=== PATIENT | male | born 1955 | race Caucasian/White ===

== ENCOUNTER 2021-09-16 10:12 | Outpatient (REF) | payer MEDICARE, MEDICAID, SELFPAY ==
--- NOTE | ~2021-09-16 | XR_ITS ---
EXAMINATION: XR CHEST CLINICAL INFORMATION: Hypercalcemia COMPARISON: None TECHNIQUE: 2 views of the chest were obtained. FINDINGS: The cardiac and mediastinal contours are normal. There are symmetric appearing 7 mm nodules of both lung bases. These may represent nipple shadows. The lungs are otherwise clear. There is no pleural effusion or pneumothorax. There are degenerative changes of the spine. XR/XR chest 2V IMPRESSION: Small symmetric nodules at both lung bases, question representing nipple shadows. Follow-up chest x-ray with nipple markers or chest CT recommended.
== END 2021-09-16 10:13 | disposition home or self-care (01) ==
LOC: HO.XRAY 10:12
PROVIDERS: Visit Provider Internal Medicine
DX: E83.52 Hypercalcemia (principal)
CPT/HCPCS: 71046

== ENCOUNTER 2022-11-10 08:33 | Outpatient (REF) | payer MEDICARE, MEDICAID, SELFPAY ==
[2022-11-10 15:31] LABS: Alanine Aminotransferase 33 U/L (0-40); Albumin Level 4.6 g/dL (3.5-5.0); Alkaline Phosphatase 58 U/L (39-117); Anion Gap 15 (12-20); Aspartate Amino Transferase 25 U/L (5-37); Bilirubin Direct 0.1 mg/dL (0.0-0.5); Bilirubin Total 0.4 mg/dL (0.0-1.0); Blood Urea Nitrogen 14 mg/dL (9-16); Calcium 10.4 mg/dL (8.4-10.2); Carbon Dioxide 21 mmol/L (22-29); Chloride 110 mmol/L (96-108); Cholesterol 178 mg/dL; Estimated Glomerular Filt Rate > 60; Glucose Random 101 mg/dL (60-115); HDL Cholesterol 42 mg/dL; LDL Cholesterol Calculated 106 mg/dl; Potassium 4.1 mmol/L (3.3-5.1); Sodium 142 mmol/L (135-145); Total Protein 7.6 g/dL (6.5-8.0); Triglycerides 151 mg/dL
== END 2022-11-10 08:34 | disposition home or self-care (01) ==
LOC: HO.HHCL 08:33
PROVIDERS: Visit Provider Internal Medicine
DX: I10 Essential (primary) hypertension (principal); E78.2 Mixed hyperlipidemia
CPT/HCPCS: 36415; 80048; 80061; 80076

== ENCOUNTER 2023-03-27 08:29 | Outpatient (REF) | payer MEDICARE, MEDICAID, SELFPAY ==
[2023-03-27 11:49] LABS: Anion Gap 13 (12-20); Blood Urea Nitrogen 16 mg/dL (9-16); Calcium 10.8 mg/dL (8.4-10.2); Carbon Dioxide 25 mmol/L (22-29); Chloride 108 mmol/L (96-108); Estimated Glomerular Filt Rate 59; Glucose Random 104 mg/dL (60-115); Potassium 4.3 mmol/L (3.3-5.1); Sodium 142 mmol/L (135-145)
== END 2023-03-27 08:30 | disposition home or self-care (01) ==
LOC: HO.HHCL 08:29
PROVIDERS: Visit Provider Internal Medicine
DX: R73.03 Prediabetes (principal)
CPT/HCPCS: 36415; 80048

== ENCOUNTER 2023-10-12 08:59 | Outpatient (REF) | payer MEDICARE, MEDICAID, SELFPAY ==
[2023-10-12 11:14] LABS: MANUAL DIFF FLAG NO
[2023-10-12 11:30] LABS: Basophils Percent Auto 0.7 % (0-2); Eosinophils Absolute Auto 0.1 X10*3/uL (0.0-0.4); Eosinophils Percent Auto 1.1 % (0-4); Hematocrit 42.4 % (42.0-52.0); Hemoglobin 14.4 g/dl (14.0-18.0); Imm Gran Abs Auto 0.02 X10*3/uL (0.00-0.03); Imm Gran Pct Auto 0.4 % (0.0-0.4); Lymphocytes Absolute Auto 1.6 X10*3/uL (1.2-4.9); Mean Corpuscular Hemoglobin 31.8 pg (27.0-33.0); Mean Corpuscular Volume 93.6 fL (80.0-98.0); Mean Platelet Volume 10.3 fL (9.4-12.4); Monocytes Absolute Auto 0.3 X10*3/uL (0.1-1.2); Monocytes Percent Auto 6.3 % (2-11); Neutrophils Absolute Auto 3.3 x10*3/uL (2.0-8.3); Neutrophils Percent Auto 61.5 % (45-73); Platelet Count 226 X10*3/uL (160-400); Red Blood Count 4.53 X10*6/uL (4.60-5.80); Red Cell Distribution Width 12.4 % (11.0-16.0); White Blood Count 5.4 X10*3/uL (4.8-10.8)
[2023-10-12 11:40] LABS: Alanine Aminotransferase 32 U/L (0-40); Albumin Level 4.5 g/dL (3.5-5.0); Alkaline Phosphatase 65 U/L (39-117); Anion Gap 11 (12-20); Aspartate Amino Transferase 26 U/L (5-37); Bilirubin Total 0.5 mg/dL (0.0-1.0); Blood Urea Nitrogen 12 mg/dL (9-16); Calcium 10.3 mg/dL (8.4-10.2); Carbon Dioxide 28 mmol/L (22-29); Chloride 108 mmol/L (96-108); Cholesterol 139 mg/dL (<200); Estimated Glomerular Filt Rate 59; Glucose Random 97 mg/dL (60-115); HDL Cholesterol 40 mg/dL (>40); LDL Cholesterol Calculated 79 mg/dL (<100); Potassium 4.2 mmol/L (3.3-5.1); Sodium 143 mmol/L (135-145); Total Protein 7.4 g/dL (6.5-8.0); Triglycerides 103 mg/dL (<150)
[2023-10-12 11:51] LABS: Prostate Specific Antigen Scr 1.22 ng/mL (<0.05-4.0)
[2023-10-12 11:57] LABS: TSH reflex Free T4 0.71 uIU/mL (0.32-4.0); Vitamin D 25-OH Total 44.9 ng/mL (>30)
[2023-10-12 11:59] LABS: Parathyroid Hormone Intact 59.8 pg/mL (8.7-77.1)
== END 2023-10-12 09:00 | disposition home or self-care (01) ==
LOC: HO.HHCL 08:59
PROVIDERS: Visit Provider Internal Medicine
DX: Z00.00 Encounter for general adult medical examination without abnormal findings (principal); E83.52 Hypercalcemia; I10 Essential (primary) hypertension; E78.2 Mixed hyperlipidemia; Z12.5 Encounter for screening for malignant neoplasm of prostate
CPT/HCPCS: 36415; 80053; 80061; 82306; 83970; 84153; 84443; 85025

== ENCOUNTER 2024-08-25 09:14 | Outpatient (AMB) | payer MEDICARE, SELFPAY ==
--- NOTE | 2024-08-25 09:18 | A.OFFVIS_ITS ---
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 Intake Note: New patient abnormal ekg they tried to do stress in the past but feel off the treadmill c/o maybe palpitations at times Shipping Room Helper Required: Yes Shipping Room Helper Services: Shipping Room Helper Present Shipping Room Helper Name: darnell Obando Allergies No Known Allergies Allergy (Verified 08/25/24 09:24) Medication List - Last Reconciled 08/25/24 by Jigar Bruce MD atorvastatin 20 mg PO DAILY lisinopril 20 mg PO DAILY omeprazole 20 mg PO DAILY verapamil ER 240 mg PO DAILY HPI Comments Details: Thank you for referring Ed in cardiology consultation today for abnormal EKG. History was obtained with help of waterproofer helper. He said he had EKG performed few months ago which was reported as abnormal and after that he has been getting symptoms of precordial chest discomfort. Describes his chest discomfort was sharp pressure usually after finishes exercising when he starts relaxing. Symptoms then dissipate within a minute or 2. The symptoms have been bothering. He was referred for a stress test although he said when he walked on treadmill was very fast he fell of the treadmill and he could not complete the test. Since then he does not want to do a repeat stress test as he said it is difficult for him to walk on a treadmill at that fast pace. He denies any significant shortness of breath with exertion. No orthopnea, PND, leg edema. He has longstanding history of hypertension hyperlipidemia. Also strong family history for premature coronary artery disease in his 2 brothers who have had open heart surgery as per him. He denies any prolonged palpitation irregular heartbeat. No lightheadedness, syncope. [facility] Medical History (Updated 08/25/24 @ 09:58 by Jigar Bruce MD) Hyperlipidemia HTN (hypertension) Surgical History Hx of appendectomy Family History Father No problems noted. Mother No problems noted. Social History Patient Tobacco Use Status: Former Tobacco user Review of Systems Const Denies chills, Denies daytime sleepiness, Denies fatigue, Denies fever(s), Denies frequent falls, Denies poor appetite, Denies snoring, Denies stops breathing during sleep, Denies weakness, Denies weight gain and Denies weight loss Eyes Denies loss of vision ENT Denies dizziness and Denies hearing loss Card Denies chest pain, Denies claudication, Denies leg edema, Denies lightheadedness, Denies palpitations, Denies dyspnea, Denies dyspnea on exertion and Denies orthopnea Resp Denies cough, Denies excessive phlegm production, Denies dyspnea, Denies dyspnea on exertion, Denies snoring and Denies wheezing GI Denies abdominal pain, Denies hematochezia, Denies change in bowel habits, Denies nausea and Denies vomiting Denies dysuria and Denies urinary frequency Musc Denies arthralgias, Denies muscle weakness, Denies numbness and Denies other (frequent falls) Skin/Breast Denies nail changes and Denies rash Neuro Denies Abnormal speech present, Denies dizziness, Denies frequent falls, Denies loss of vision, Denies memory loss, Denies numbness and Denies weakness Psych Denies depression and Denies memory loss Endo Denies fatigue and Denies palpitations Kevin/Lymph Reports easy bruising and Reports other (anemia) Aller/Immun Denies wheezing Physical Exam Vital Signs: Last Vital Signs Pulse 76 08/25/24 09:19 BP 124/70 08/25/24 09:19 BMI result Body Mass Index 31.0 Const General: cooperative, comfortable, no acute distress, alert and awake Nutritional Appearance: overweight Orientation/consciousness: patient oriented x3 Limitations: no limitations HEENT Head: Yes normocephalic and Yes atraumatic Neck Neck: Yes trachea midline, Yes supple and Yes no JVD Chest Chest palpation & inspection: normal inspection of the chest Resp Effort & Inspection: normal respiratory effort Auscultation: clear to auscultation bilaterally Cardio Jugular venous distension: no JVD Palpation: normal PMI Rate: regular rate Rhythm: regular rhythm Heart sounds: S1 normal heart sound present, S2 normal heart sound present, no click, no gallops, no murmurs and no rubs Bruits: no carotid bruits GI Auscultation: normal bowel sounds Skin General skin exam: no rashes or lesions noted Neuro General: patient oriented x3 and no focal motor deficits Speech: No Abnormal speech present Extrem General: Yes no clubbing, cyanosis or edema Psych Appearance: grossly normal Office Procedures EKG Details: EKG shows normal sinus rhythm normal EKG 23499-[id number], Complete Assessment & Plan Assessment & Plan (1) Atypical chest pain: Code(s): R07.89 - Other chest pain Category: Medical Plan: Atypical precordial chest pain this elderly gentleman with multiple risk factors including family history, hypertension, hyperlipidemia as well as his age. Likelihood of myocardial ischemia is intermediate. He can not exercise on treadmill. His baseline EKGs although he is normal. I have suggested him to undergo vasodilating myocardial perfusion imaging due to his inability to exercise on treadmill. This will be scheduled in near future. Further treatment based on the findings. If this is within normal limits can consider coronary calcium score for further risk stratification purposes. Also suggest an echocardiogram to evaluate for LV systolic and diastolic function to evaluate for hypertensive heart disease. These tests will be scheduled in near future. Further testing based on the finding of these test results. For now continue aggressive blood pressure control which is currently well optimized. At least target goal LDL less than 100 mg/dL and may need to intensify based on the findings of the coronary calcium score. Will follow up in the clinic in 2 months time, sooner p.r.n.. Thank you for allowing me to partake in his care Coding Level of Care Code New Pt Level 4 (06150) Complex EM visit Add On G2211 Diagnoses Atypical chest pain R07.89 CPT Codes EKG - CPT: 93130-[id number], Complete ([id number])
[2024-08-25 09:19] VITALS: BP 124/70; PULSE 76; BMI 31.0
--- OUTSIDE RECORDS SUMMARY | 2024-08-25 09:25 | XMS_ITS | Clinical Summary ---
Author Organization [employer] Address [address] [place] [address] Care Team Providers Care Wan Support Specialist Name Role Phone Jameson Mccurdy MD Primary Care Provide r Allergies No known active allergies Medications polycarbophil (FiberCon) 625 MG tabletIndications:C onstipation, unspecified constipation type Take 1 tablet (625 mg) by mouth Once per day. 30 tablet 11 4 09/07/19 25 Active hydrocortisone (Anusol-HC) 2.5 % rectal creamIndications:He morrhoids, unspecified hemorrhoid type Insert into the rectum 2 times daily. 28 g 1 4 Active verapamil SR (Calan SR) 240 MG ER tabletIndications:E ssential hypertension TAKE 1 TABLET BY MOUTH EVERY DAY WITH FOOD 90 tablet 1 4 Active atorvastatin (Lipitor) 20 MG tabletIndications:M ixed hyperlipidemia TAKE 1 TABLET BY MOUTH ONCE DAILY (STOP FENOFIBRATE) 90 tablet 4 Active omeprazole (PriLOSEC) [address] capsuleIndications: Gastroesophageal reflux disease without esophagitis TAKE 1 CAPSULE BY MOUTH ONCE DAILY BEFORE A MEAL 90 capsule 1 5 Active lisinopril 20 MG tabletIndications:E ssential hypertension Take 1 tablet by mouth once daily 90 tablet 5 Active Active Problems Problem Noted Date Diagnosed Date Abnormal EKG 10/09/2023 Assessment & Plan (05/01/2024 2:03 PM EST): 68 year old male with Pmhx for HTN, Hyperlipidemia. With an ASCVD risk score down to 13.2% Most recent EKG showed Qs in III, as well as flat T waves III, AVF. Patient was referred to cardiology evaluation to rule out silent ischemia. Given risk factors needs Outpatient stress test. Patient cancelled appointment because he reports he had a bad experience years ago, he apparently fell when he was running in the treadmill. The 10-year ASCVD risk score (Sally HANNON, et al., 2019) is: 13.2% Values used to calculate the score: Age: 68 years Sex: Male Is Non- : No Diabetic: No Tobacco smoker: No Systolic Blood Pressure: 117 mmHg Is BP treated: Yes HDL Cholesterol: 40 mg/dL Total Cholesterol: 139 mg/dL Assessment & Plan (01/08/2024 2:48 PM EDT): 68 year old male with Pmhx for HTN, Hyperlipidemia. With an ASCVD risk score down to 13.2% Most recent EKG showed Qs in III, as well as flat T waves III, AVF. Patient was referred to cardiology evaluation to rule out silent ischemia. Given risk factors needs Outpatient stress test. Patient cancelled appointment because he reports he had a bad experience years ago, he apparently fell when he was running in the treadmill. The 10-year ASCVD risk score (Sally HANNON, et al., 2019) is: 13.2% Values used to calculate the score: Age: 68 years Sex: Male Is Non- : No Diabetic: No Tobacco smoker: No Systolic Blood Pressure: 117 mmHg Is BP treated: Yes HDL Cholesterol: 40 mg/dL Total Cholesterol: 139 mg/dL Assessment & Plan (10/09/2023 1:16 PM EDT): 68 year old male with Pmhx for HTN, Hyperlipidemia. With an ASCVD risk score of 17.1% EKG today shows Qs in III, as well as flat T waves III, AVF. Plan: cardiology evaluation to rule out silent ischemia. Given risk factors needs Outpatient stress test The 10-year ASCVD risk score (Sally HANNON, et al., 2019) is: 17.1% Values used to calculate the score: Age: 68 years Sex: Male Is Non- : No Diabetic: No Tobacco smoker: No Systolic Blood Pressure: 127 mmHg Is BP treated: Yes HDL Cholesterol: 42 mg/dL Total Cholesterol: 178 mg/dL Constipation 09/07/2023 Assessment & Plan (09/07/2023 11:25 AM EDT): I advise to stop the supplement that cause the constipation, more fiber and water on his diet I will prescribed colace and fiber Hemorrhoid 09/07/2023 Assessment & Plan (09/07/2023 11:25 AM EDT): Hydrocortisone prescribed if problem persist or worse contact us back Overweight (BMI 25.0-29.9) 03/20/2023 Assessment & Plan (05/01/2024 2:32 PM EST): Patient has been counseled and educated about diet and exercise. Personal goal of weight loss discussedPatient has comorbidity of: HTN Assessment & Plan (03/20/2023 10:39 AM EST): Patient has been counseled and educated about diet and exercise. Personal goal of weight loss discussedPatient has comorbidity of: HTN Class 1 obesity due to exces s calories with serious comorbidity and body mass index (BMI) of 30.0 to 30.9 in adult 07/04/2022 Assessment & Plan (07/04/2022 2:25 PM EDT): Patient has been counseled and educated about diet and exercise. Personal goal of weight loss discussedPatient has comorbidity of: HTN Exercise counseling 07/04/2022 Dietary counseling 03/14/2022 Assessment & Plan (03/14/2022 1:59 PM EST): Abdominal US ordered Hypercalcemia 03/10/2022 Assessment & Plan (01/08/2024 2:37 PM EDT): Initial work up to r/o causes of Hypercalcemia such as Hyperparathyroidism among other things was unremarkable PTH, PTHrP, TSH, SPEP , UPEP were all wnl. 1 25 dihydroxyvitamin D, 25 hydroxy vitamin D were low I discontinued his Thiazide diuretic in the event that this could be contributing to it Pt was seen by Endocrinology 06/09/2021 and subsequently on 10/27/2021 They recommended to repeat PTH, Vit D and a 24 urine Ca and Cr. Initially they mentioned that pending results if non-PTH related hypercalcemia to do a work up for hematological disorders or to work up for Sarcoidosis or granulomatous diseases, but it appears that upon repeat his Calcium had normalized and they then recommended to discharge pt back to Primary care Repeat Calcium 10/12/2023: 10.3 Assessment & Plan (10/09/2023 12:41 PM EDT): Patient with persistent Hypercalcemia Initial work up to r/o causes of Hypercalcemia such as Hyperparathyroidism among other things has been unremarkable PTH, PTHrP, TSH, SPEP , UPEP were all wnl. 1 25 dihydroxyvitamin D, 25 hydroxy vitamin D were low I discontinued his Thiazide diuretic in the event that this could be contributing to it Pt was seen by Endocrinology 06/09/2021 and subsequently on 10/27/2021 They recommended to repeat PTH, Vit D and a 24 urine Ca and Cr. Initially they mentioned that pending results if non-PTH related hypercalcemia to do a work up for hematological disorders or to work up for Sarcoidosis or granulomatous diseases, but it appears that upon repeat his Calcium had normalized and they then recommended to discharge pt back to Primary care Repeat Calcium 03/2023 went back up to 10.8. will repeat today Assessment & Plan (07/04/2022 2:17 PM EDT): Initial work up to r/o causes of Hypercalcemia such as Hyperparathyroidism among other things has been unremarkable PTH, PTHrP, TSH, SPEP , UPEP were all wnl 1 25 dihydroxyvitamin D, 25 hydroxy vitamin D were low Previous visit I discontinued his Thiazide diuretic in the event that this could be contributing to it Pt was referred to Endocrinology, he was seen 06/09/2021 and subsequently on 10/27/2021 They recommended to repeat PTH, Vit D and a 24 urine Ca and Cr. Initially they mentioned that pending results if non-PTH related hypercalcemia to do a work up for hematological disorders or to work up for Sarcoidosis or granulomatous diseases, but it appears that upon repeat his Calcium had normalized and they then recommended to discharge pt back to Primary care Repeat Calcium 03/2022 was back to normal no further work up Assessment & Plan (03/14/2022 11:43 AM EST): Here for a f/u Previous repeat level was still elevated, Initial work up to r/o causes of Hypercalcemia such as Hyperparathyroidism among other things has been unremarkable PTH, PTHrP, TSH, SPEP , UPEP were all wnl 1 25 dihydroxyvitamin D, 25 hydroxy vitamin D were low Previous visit I discontinued his Thiazide diuretic in the event that this could be contributing to it Pt was referred to Endocrinology, he was seen 06/09/2021 and subsequently on 10/27/2021 They recommended to repeat PTH, Vit D and a 24 urine Ca and Cr. Initially they mentioned that pending results if non-PTH related hypercalcemia to do a work up for hematological disorders or to work up for Sarcoidosis or granulomatous diseases, but it appears that upon repeat his Calcium had normalized and they then recommended to discharge pt back to Primary care Plan: Repeat Ionized Calcium today 3 months f/u Polyp of transverse colon 03/10/2022 Assessment & Plan (07/04/2022 2:15 PM EDT): Patient has a History of an extremely large sessile polyp of the transverse colon piecemeal resected. he had his last colonoscopy 09/12/[address] Marinelli. On his note Dr. Marinelli wrote he wanted to repeat his Colonoscopy in 3 years to assure full polyp removal and rule out any recurrent polyps. Unfortunately since then Dr. Marinelli has retired and pt never had it repeated. Previously Pt was referred to [facility] for a repeat appointment scheduled for 06/2019, unfortunately this was cancelled due to Covid, He was finally seen 08/31/2021 and had a colonoscopy [place] 16 2022 [place] [facility] [place] showed 3 polyps 5 year follow up recommended Assessment & Plan (03/10/2022 5:17 PM EST): Patient has a History of an extremely large sessile polyp of the transverse colon piecemeal resected. he had his last colonoscopy 09/12/[address] Marinelli. On his note Dr. Marinelli wrote he wanted to repeat his Colonoscopy in 3 years to assure full polyp removal and rule out any recurrent polyps. Unfortunately since then Dr. Marinelli has retired and pt never had it repeated. Previously Pt was referred to [facility] for a repeat appointment scheduled for 06/2019, unfortunately this was cancelled due to Covid, He was finally seen 08/31/2021 and is already scheduled for procedure for March 16 2022 [facility] care 03/10/2022 Assessment & Plan (01/08/2024 2:39 PM EDT): PSA Normal 1.22 10/12/2023 Colonoscopy: History of an extremely large sessile polyp of the transverse colon piecemeal resected. he had a colonoscopy 09/12/[address] Marinelli.Repeat Colonoscopy 03/2022 showed 3 polyps and hemorrhoids 5 yr follow up recommended to be done at [facility] [place]. Assessment & Plan (10/09/2023 12:42 PM EDT): JERAD: PSA Normal 2020, will repeat Colonoscopy: History of an extremely large sessile polyp of the transverse colon piecemeal resected. he had a colonoscopy 09/12/[address] Marinelli.Repeat Colonoscopy 03/2022 showed 3 polyps and hemorrhoids 5 yr follow up recommended done at [facility] [place] 20[place]. Assessment & Plan (07/04/2022 2:18 PM EDT): JERAD: PSA Normal 2020 Colonoscopy: History of an extremely large sessile polyp of the transverse colon piecemeal resected. he had his last colonoscopy 09/12/[address] Marinelli. Repeat Colonoscopy 03/2022 showed 3 polyps and hemorrhoids 5 yr follow up recommended done at [facility] Assessment & Plan (03/10/2022 5:19 PM EST): JERAD: PSA Normal 2020 Colonoscopy: History of an extremely large sessile polyp of the transverse colon piecemeal resected. he had his last colonoscopy 09/12/[address] Marinelli. On his note Dr. Marinelli wrote he wanted to repeat his Colonoscopy in 3 years to assure full polyp removal and rule out any recurrent polyps. Pt has missed appointments today will try to help him reschedule Vaccines: Uptodate on his Covid-19 vaccine Impaired glucose tolerance 02/23/2022 Assessment & Plan (05/01/2024 2:33 PM EST): FBS 10/12/2023: 97 Will repeat Assessment & Plan (01/08/2024 2:36 PM EDT): Repeat FBS 10/12/2023: 97 Assessment & Plan (10/09/2023 12:36 PM EDT): Repeat FBS 03/2023 104 Assessment & Plan (03/20/2023 10:25 AM EST): Will obtain a FBS Posterior vitreous detachment of right eye 08/19 Essential hypertension 06/10/2018 Assessment & Plan (05/01/2024 2:03 PM EST): Patient is here for a f/u BP remains controlled He is on a regimen of: Verapamil 240 mg po daily and Lisinopril 20 mg. po daily. Given the fact that he had Hypercalcemia and initial work up had been negative for other etiologies I was concerned the Thiazide diuretic was contributing to it Most recent electrolytes, Bun and Creatinine 10/12/2023 were wnl. patient advised to adhere to a low sodium diet, encouraged about medication compliance, counseled about weight loss. Plan: continue current regimen Assessment & Plan (01/08/2024 2:35 PM EDT): Patient is here for a f/u BP remains controlled He is on a regimen of: Verapamil 240 mg po daily and Lisinopril 20 mg. po daily. Given the fact that he had Hypercalcemia and initial work up had been negative for other etiologies I was concerned the Thiazide diuretic was contributing to it Most recent electrolytes, Bun and Creatinine 10/12/2023 were wnl. patient advised to adhere to a low sodium diet, encouraged about medication compliance, counseled about weight loss. Plan: continue current regimen Assessment & Plan (10/09/2023 12:36 PM EDT): Patient is here for a f/u BP remains controlled He is on a regimen of: Verapamil 240 mg po daily and Lisinopril 20 mg. po daily. Given the fact that he had Hypercalcemia and initial work up had been negative for other etiologies I was concerned the Thiazide diuretic was contributing to it Most recent electrolytes, Bun and Creatinine 03/27/2023 were wnl. patient advised to adhere to a low sodium diet, encouraged about medication compliance, counseled about weight loss. Plan: continue current regimen Assessment & Plan (03/20/2023 8:45 AM EST): Patient is here for a f/u BP remains controlled He is on a regimen of: Verapamil 240 mg po daily and Lisinopril 20 mg. po daily. Given the fact that he had Hypercalcemia and initial work up had been negative for other etiologies I was concerned the Thiazide diuretic was contributing to it Most recent electrolytes, Bun and Creatinine 11/10/2022 were wnl. patient advised to adhere to a low sodium diet, encouraged about medication compliance, counseled about weight loss. Plan: continue current regimen Assessment & Plan (11/02/2022 10:03 AM EDT): Patient is here for a f/u BP remains controlled He is on a regimen of: Verapamil 240 mg po daily and Lisinopril 20 mg. po daily. Given the fact that he had Hypercalcemia and initial work up had been negative for other etiologies I was concerned the Thiazide diuretic was contributing to it Most recent electrolytes, Bun and Creatinine 03/27/2022 were wnl. Will repeat patient advised to adhere to a low sodium diet, encouraged about medication compliance, counseled about weight loss. Plan: continue current regimen Assessment & Plan (07/04/2022 2:13 PM EDT): Pt here for a f/u BP remains controlled He is on a regimen of: Verapamil 240 mg po daily and Lisinopril 20 mg. po daily. Given the fact that he has Hypercalcemia and initial work up has been negative for other etiologies I was concerned the Thiazide diuretic was contributing to it Most recent electrolytes, Bun and Creatinine 03/27/2023 were wnl. patient advised to adhere to a low sodium diet, encouraged about medication compliance, counseled about weight loss. Plan: continue current regimen Assessment & Plan (03/10/2022 5:16 PM EST): Pt here for a f/u BP controlled He is on a regimen of: Verapamil 240 mg po daily and Lisinopril 20 mg Given the fact that he has Hypercalcemia and initial work up has been negative for other etiologies I was concerned the Thiazide diuretic was contributing to it Most recent electrolytes, Bun and Creatinine 10/21/2020 were wnl today will repeat patient advised to adhere to a low sodium diet, encouraged about medication compliance, counseled about weight loss. Plan: continue current regimen Gastroesophageal reflux disease 06/10/2018 Hyperlipidemia 06/10/2018 Assessment & Plan (01/08/2024 2:38 PM EDT): Patient with elevated lipids. Most recent lipid profile from: Lab Results Component Value Date TRIG 103 10/12/2023 TRIG 151 11/10/2022 CHOL 139 10/12/2023 CHOL 178 11/10/2022 LDLCHOLCAL 79 10/12/2023 LDLCHOLCAL 106 11/10/2022 HDL 40 (L) 10/12/2023 HDL 42 11/10/2022 Currently on Atorvastatin 20 mg po qhs . advised to try to adhere to a low cholesterol diet, counseled and educated about diet and exercise, Patient encouraged to come up with a personal goal for weight loss. Assessment & Plan (10/09/2023 1:22 PM EDT): Patient with elevated lipids. Most recent lipid profile from: 11/10/2022 shows Component Ref Range & Units 4 mo ago (11/10/22) 11 mo ago (03/27/22) 2 yr ago (10/21/20) 2 yr ago (10/21/20) Triglycerides mg/dL 151 279 High R, CM 155 High R 155 R Comment: Desirable Triglyceride: less than 150 mg/dLBorderline High Triglyceride 150-199 mg/dLHigh Triglyceride: 200-499 mg/dLVery High Triglyceride: greater than or equal to 5OO mg/dL Cholesterol mg/dL 178 181 R Comment: Desirable Cholesterol: less than 200 mg/dLBorderline High Cholesterol: 200-239 mg/dLHigh Cholesterol: greater than 239 mg/dL LDL Cholesterol Calculated mg/dl 106 Comment: Desirable LDL: less than 100 mg/dLNear Optimal/Above Optimal LDL: 110- 129 mg/dLBorderline High LDL: 130-159 mg/dLHigh LDL: 160-189 mg/dLVery High LDL: greater than or equal to 190 mg/dL HDL Cholesterol mg/dL 42 41 R 43 R Currently on Tricor Ascvd 17.1% Plan: STOP Tricor, START Atorvastatin 20 mg po qhs . advised to try to adhere to a low cholesterol diet, counseled and educated about diet and exercise, Patient encouraged to come up with a personal goal for weight loss. Will repeat Lipid profile Assessment & Plan (03/20/2023 8:46 AM EST): Patient with elevated lipids. Most recent lipid profile from: 11/10/2022 shows Component Ref Range & Units 4 mo ago (11/10/22) 11 mo ago (03/27/22) 2 yr ago (10/21/20) 2 yr ago (10/21/20) Triglycerides mg/dL 151 279??High?? R, CM 155??High?? R 155 R Comment: Desirable Triglyceride: ? less than 150 mg/dLBorderline High Triglyceride ??150-199 mg/dLHigh Triglyceride: ?200-499 mg/dLVery High Triglyceride: ? greater than or equal to ?5OO mg/dL Cholesterol mg/dL 178 181 R Comment: Desirable Cholesterol: ?less than 200 mg/dLBorderline High Cholesterol: ??200-239 mg/dLHigh Cholesterol: ? greater than 239 mg/dL LDL Cholesterol Calculated mg/dl 106 Comment: Desirable LDL: ? less than 100 mg/dLNear Optimal/Above Optimal LDL: ??110-129 mg/dLBorderline High LDL: ? 130-159 mg/dLHigh LDL: ?160-189 mg/dLVery High LDL: ? greater than or equal to ? 190 mg/dL HDL Cholesterol mg/dL 42 41 R 43 R Currently on Tricor . advised to try to adhere to a low cholesterol diet, counseled and educated about diet and exercise, Patient encouraged to come up with a personal goal for weight loss. Assessment & Plan (11/02/2022 10:28 AM EDT): Patient with elevated lipids. Most recent lipid profile from: 05/28/2022 shows a total cholesterol of: 252 triglycerides of: 279 HDL of: 41 and LDL of: 165 Currently on Tricor . advised to try to adhere to a low cholesterol diet, counseled and educated about diet and exercise, Patient encouraged to come up with a personal goal for weight loss. Assessment & Plan (07/04/2022 2:16 PM EDT): Patient with elevated lipids. Most recent lipid profile from: 05/28/2022 shows a total cholesterol of: 252 triglycerides of: 279 HDL of: 41 and LDL of: 165 Currently on Tricor . advised to try to adhere to a low cholesterol diet, counseled and educated about diet and exercise, Patient encouraged to come up with a personal goal for weight loss. Assessment & Plan (03/10/2022 5:18 PM EST): Patient with elevated lipids. Most recent lipid profile from: 01/13/2021 shows a total cholesterol of: 112 triglycerides of: 194 HDL of: 34 and LDL of: 51 Currently on Tricor . advised to try to adhere to a low cholesterol diet, counseled and educated about diet and exercise, Patient encouraged to come up with a personal goal for weight loss. Pterygium 06/10/2018 Resolved Problems Problem Noted Date Diagnosed Date Resolved Date Overweight (BMI 25.0-29.9) 06/10/2018 0 07/04/2022 Encounters Date Type Department Care Team Description 07/19/2024 Refill [facility] [address] [place] [address] Jameson Mccurdy MD Essential hypertension from Last 3 Months Immunizations Immunization Administration Dates Next Due INFLUENZA VACCINE QUADRIVALE NT RECOMBINANT PRESERVATIVE FREE RIV4 01/17/2021 Influenza High-dose Quadriva lent Preservative Free 12/08/2022,01/09/2022 Influenza injectable quadriv alent preservative free 12/27/2019,01/24/2019,12/28/2017 Influenza, seasonal, injecta ble, preservative free 11/28/2016,12/15/2015,01/15/2015 Influenza, trivalent, adjuvanted 12/15/2015 Moderna Covid-19 Vaccine 12+ 10/25/2020,09/28/19 21 Pneumococcal Conjugate PCV 20 01/09/2022 Tdap 06/02/2021,06/10/2008 Social History Tobacco Use Types Packs/Day Years Used Date Smoking Tobacco: Never Passive Smoke Exposure: Never Smokeless Tobacco: Never Tobacco Cessation:Counseling Given: Not Answered Alcohol Use Standard Drinks/Week Comments Never 0 (1 standard drink = 0.6 oz pur e alcohol) Depression Answer Date Recorded Patient Health Questionnaire-9 Score 0 05/01/2024 Patient Health Questionnaire-9 Score 0 05/01/2024 Last PHQ-9: Questionnaire Data Not on file 0 05/01/2024 Housing Stability Answer Date Recorded What is your housing situation today? I have lorena calvo 03/20/[address] you li ve. Do you have problems with any of the following? None of the above 03/20/2023 Food Insecurity Answer Date Recorded Within the past 12 months, y ou worried that your food would run out before you got money to buy more: Never True 03/20/2023 Within the past 12 months,th e food you bought just didn't last and you didn't have enough money to get more: Never True 03/2023 Transportation Answer Date Recorded In the past 12 months, has l ack of transportation kept you from medical appts, meetings, work or from getting things needed for daily living? No 03/20/2023 Utilities Answer Date Recorded In the past 12 months, has t he electric, gas, oil or water company threatened to shut off services in your home? No 03/20/2023 Depression Answer Date Recorded Patient Health Questionnaire-2 Score 0 05/01/2024 Sex and Gender Information Value Date Recorded Sex Assigned at Male 02/06/2022 10:35 AM EDT Legal Sex Male 10:35 AM EDT Gender Identity Male 02/06/2022 10:35 AM EDT Sexual Orientation Straight 02/06/2022 10 :35 AM EDT Last Filed Vital Signs Vital Sign Reading Time Taken Comments Blood Pressure 120/80 05/01/2024 2:41 PM EST Pulse 105 05/01/2024 2:32 PM EST Temperature 36.3 ??C (97.3 ??F) 05/01/2024 2:32 PM ES T Respiratory Rate 19 05/01/2024 2:32 PM EST Oxygen Saturation 98% 05/01/2024 2:32 PM EST Inhaled Oxygen Concentration - - Weight 76.2 kg (168 lb) 05/01/2024 2:32 PM EST Height 157.5 cm (5' 2 ) 05/01/2024 2:32 PM EST Body Mass Index 30.73 05/01/2024 2:32 PM EST Plan of Treatment Upcoming Encounters Date Type Department Care Team (Late st Contact Info) Description 09/02/2024 2:00 PM EDT Office Visit [facility] [address] [place] [address] Jameson Mccurdy MD [address] [place] [address] Health Maintenance Due Date Last Done Comments CT Colonography 1956 Diabetes: Hemoglobin A1C 1955 FIT DNA/Cologuard 1955 FIT 1956 FOBT 1955 Sigmoidoscopy 1955 Zoster Vaccines (1 of 2) 2006 COVID-19 Vaccine ( season) 2023 10/25/2020, 09/27/2020 Influenza Vaccine (#1) 2023 , 01/09/2022, 01/17/2021, Additional history exists SDOH Screening 03/20/2024 03/20/2023 Alcohol/Substance Use Screening 05/01/2025 05/01/2024 Depression Screening 05/01/2025 05/01/2024, 05/01/19 25 Tobacco Screening 05/01/2025 05/01/2024 Colonoscopy 03/16/2027 03/16/2022, 09/12/2012 Colorectal Cancer Screening 03/16/2027 Lipid Panel 10/11/2028 10/12/2023, 08/0 07/2022, 03/27/2022, Additional history exists DTaP/Tdap/Td Vaccines (3 - Td or Tdap) 06/02/2031 06/02/2021, 06/10/2008 RSV Patients and Patients Aged 60 years or older (1 - 1-dose 75+ series) 08/20/2031 Pneumococcal Vaccine: 50+ Years Completed 01/09/2022 Hepatitis C Screening Completed 03/27/2022 HIB Vaccines Aged Out No longer eligi ble based on patient's age to complete this topic HPV Vaccines Aged Out No longer eligi ble based on patient's age to complete this topic Hepatitis A Vaccines Aged Out No long er eligible based on patient's age to complete this topic Hepatitis B Vaccines Aged Out No long er eligible based on patient's age to complete this topic IPV Vaccines Aged Out No longer eligi ble based on patient's age to complete this topic Meningococcal B Vaccine Aged Out No l onger eligible based on patient's age to complete this topic Meningococcal Vaccine Aged Out No krysten abraham eligible based on patient's age to complete this topic RSV under 20 months Aged Out No longe r eligible based on patient's age to complete this topic Rotavirus Vaccines Aged Out No longer eligible based on patient's age to complete this topic Procedures Procedure Name Priority Date/Time Associated Diagnosis Comments LIPID PANEL, STANDARD Routine 10/12/2023 9:00 AM EDT Mixed hyperlipidemia HEPATITIS C AB W/REFL TO HCV RNA, QN, PCR Routine 03/27/2022 9:26 AM EST Preventative health care HM COLONOSCOPY Routine 03/16/2022 from Last 3 Months or Most Recently Relevant to Health Maintenance Results * (ABNORMAL) Lipid Panel, Standard (10/12/2023 9:00 AM EDT) Triglycerides 103 <150 mg/dL [facility] Comment:Desirable Triglyceri de: less than 150 mg/dLBorderline High Triglyceride 150-199 mg/dLHigh Triglyceride: 200-499 mg/dLVery High Triglyceride: greater than or equal to 5OO mg/dL Cholesterol 139 <200 mg/dL [facility] Comment:Desirable Cholestero l: less than 200 mg/dLBorderline High Cholesterol: 200-239 mg/dLHigh Cholesterol: greater than 239 mg/dL LDL Cholesterol Calculated 79 <100 mg/dL [facility] Comment:Desirable LDL: less than 100 mg/dLNear Optimal/Above Optimal LDL: 110- 129 mg/dLBorderline High LDL: 130-159 mg/dLHigh LDL: 160-189 mg/dLVery High LDL: greater than or equal to 190 mg/dL HDL Cholesterol 40(L) >40 mg/dL [facility] Comment:Desirable HDL: great er than 40 mg/dL Note: This HDL assay may give artificially low results in patients with liver disease. Blood Venous blood specimen / Unknown 10/12/2023 9:00 AM EDT 10/12/2023 11:07 AM EDT us Jameson Avelar MD LAB BLOOD ORDERABLES Final Result [facility] [address] [place] [phone] * Hepatitis C Antibody with Reflex to HCV, RNA, Quantitative, Real-Time PCR (03/27/2022 9:26 AM EST) Hepatitis C Antibody NON-REACT KATELYNN NON-REACT KATELYNN [employer] [place] [employer] Index 0.05 <1.00 [facility] [place] [facility] Comment: HCV antibody was non-reactive. There is no laboratory evidence of HCV infection. In most cases, no further action is required. However, if recent HCV exposure is suspected, a test for HCV RNA (test code 84695) is suggested. For additional information please refer to http://education.6APT/faq/JJM16y6 (This link is being provided for informational/ educational purposes only.) Blood Venous blood specimen / Unknown 03/27/2022 9:26 AM EST 03/27/2022 9:27 AM EST Narrative [facility] - 03/28/2022 10:18 AM EST FASTING:YES FASTING: YES Jameson Avelar MD LAB BLOOD ORDERABLES Final Result [facility] [address] [facility], [address], [place] [address] [facility] [address] , ([address]) [place] [address] * Colonoscopy (03/16/2022) Colonoscopy Normal Normal 03/16/2022 Valentina Tobin - 03/16/2022 9:52 AM EST Recommended five year follow up due to polypectomy ( see scanned report )[facility] Historical Provider HEALTH MAINTENANCE Edited Result - Final from Last 3 Months or Most Recently Relevant to Health Maintenance Insurance [employer] MEDICARE REPLACEMENT Care Teams Wan Support Specialist Relationship Specialty Start Date End Date Jameson Mccurdy MD [address] [facility] [place] [address] PCP - General Internal Medicine 02/12/19
--- OUTSIDE RECORDS SUMMARY | 2024-08-25 09:25 | XMS_ITS | Encounter Summary ---
Author Organization [email or web address] Address [address] [facility] 7t [place] [address] Care Team Providers Care Industrial Chemistry Teacher Name Role Phone Jameson Mccurdy MD Primary Care Provide r Reason for Visit * Reason Onset Date Comments Call back 08/07/2022 Encounter Details Date Type Department Care Team ([facility] st Contact Info) Description 08/07/2022 Telephone [facility] MEDICINE [address] [place] [address] Jameson Mccurdy MD [address] [place] [address] Call back Social History Tobacco Use Types Packs/Day Years Used Date Smoking Tobacco: Former Cigarettes Smokeless Tobacco: Never Alcohol Use Standard Drinks/Week Comments Never 0 (1 standard drink = 0.6 oz pur e alcohol) Sex and Gender Information Value Date Recorded Sex Assigned at Male 02/06/2022 10:35 AM EDT Legal Sex Male 10:35 AM EDT Gender Identity Male 02/06/2022 10:35 AM EDT Sexual Orientation Straight 02/06/2022 10 :35 AM EDT documented as of this encounter Miscellaneous Notes * Telephone Encounter - Vijay Calderon - 08/07/2022 11:49 AM EDT Tc from pt returning Phone call. Pt states that he received a call from the Clinic today (08/07/2022). Physics Tutor does not see no task of this call Please contact pt at [phone] Algerian Speaker documented in this encounter Plan of Treatment Upcoming Encounters Date Type Department Care Team (Late st Contact Info) Description 09/02/2024 2:00 PM EDT Office Visit [facility] MEDICINE [address] [facility] [place] [address] Jameson Mccurdy MD [address] [place] [address] documented as of this encounter Visit Diagnoses Not on filedocumented in this encounter Care Teams Industrial Chemistry Teacher Relationship Specialty Start Date End Date Jameson Mccurdy MD [address] [facility] [place] [address] PCP - General Internal Medicine 02/12/19 documented as of this encounter
--- OUTSIDE RECORDS SUMMARY | 2024-08-25 09:25 | XMS_ITS | Encounter Summary ---
Author Organization [employer] Address [address] [facility] 7t [place] [address] Care Team Providers Care Content Strategy Lead Name Role Phone Jameson Mccurdy MD Primary Care Provide r Encounter Details Date Type Department Care Team (Late Contact Info) Description 02/23/2022 Abstract [facility] MEDICINE [address] [place] [address] Jameson Mccurdy MD [address] [place], [place] [phone] Social History Tobacco Use Types Packs/Day Years Used Date Smoking Tobacco: Never Assessed Sex and Gender Information Value Date Recorded Sex Assigned at Male 02/06/2022 10:35 AM EDT Legal Sex Male 10:35 AM EDT Gender Identity Male 02/06/2022 10:35 AM EDT Sexual Orientation Straight 02/06/2022 10 :35 AM EDT documented as of this encounter Plan of Treatment Upcoming Encounters Date Type Department Care Team (Late st Contact Info) Description 09/02/2024 2:00 PM EDT Office Visit [facility] MEDICINE [address] [place] [address] Jameson Mccurdy MD [address] [place], [place] [phone] documented as of this encounter Procedures Procedure Name Priority Date/Time Associated Diagnosis Comments LIPID PANEL, STANDARD Routine 10/21/2020 COLONOSCOPY Routine 09/12/2012 documented in this encounter Results * Lipid Panel, Standard (10/21/2020) LDL HDL Ratio 4.2 Triglycerides 155 40 - 160 mg/dL Cholesterol 181 0 - 200 mg/dL HDL Cholesterol 43 35 - 70 mg/dL LDL Cholesterol 111 mg/dL Blood Venous blood specimen / Unknown us Historical Provider LAB BLOOD ORDERABLES Shelli l Result * Hm Colonoscopy (09/12/2012) Colonoscopy Large polyp Comment:Dr Marinelli recommended repeat in 3 years, pt missed appointmen us Historical Provider HEALTH MAINTENANCE Final Result documented in this encounter Visit Diagnoses Not on filedocumented in this encounter Care Teams Content Strategy Lead Relationship Specialty Start Date End Date Jameson Mccurdy MD [address] [place] [address] PCP - General Internal Medicine 02/12/19 documented as of this encounter
--- OUTSIDE RECORDS SUMMARY | 2024-08-25 09:25 | XMS_ITS | Encounter Summary ---
Author Organization [employer] Address [address] [place] [address] 7t [place] [address] Care Team Providers Care Clinical Nursing Manager Name Role Phone Jameson Mccurdy MD Primary Care Provide r Encounter Details Date Type Department Care Team ([facility] Contact Info) Description 03/22/2022 [facility] Only [facility] [address] [place] [address] Jameson Mccurdy MD [address] [place], [place] [phone] Social History Tobacco Use Types Packs/Day Years [...] Orientation Straight 02/06/2022 10 :35 AM EDT COVID-19 Exposure Response Date Recorded In the last 10 days, have yo u been in contact with someone who was confirmed or suspected to have Coronavirus/COVID-19? No / Unsure 03/14/2022 10:37 AM EST documented as of this encounter Plan of Treatment Upcoming Encounters Date Type Department Care Team ([facility] Contact Info) Description 09/02/2024 2:00 PM EDT Office Visit [facility] MEDICINE [address] [place] [address] Jameson Mccurdy MD [address] [place], [place] [phone] documented as of this encounter Procedures Procedure Name Priority Date/Time Associated Diagnosis Comments LIPID PANEL, STANDARD Routine 11/10/2022 8:38 AM EDT documented in this encounter Results * Lipid Panel, Standard (11/10/2022 8:38 AM EDT) Triglycerides 151 mg/dL [facility] Comment:Desirable Triglyceri de: less than 150 mg/dLBorderline High Triglyceride 150-199 mg/dLHigh Triglyceride: 200-499 mg/dLVery High Triglyceride: greater than or equal to 5OO mg/dL Cholesterol 178 mg/dL [facility] Comment:Desirable Cholestero l: less than 200 mg/dLBorderline High Cholesterol: 200-239 mg/dLHigh Cholesterol: greater than 239 mg/dL LDL Cholesterol Calculated 106 mg/dl [facility] Comment:Desirable LDL: less than 100 mg/dLNear Optimal/Above Optimal LDL: 110- 129 mg/dLBorderline High LDL: 130-159 mg/dLHigh LDL: 160-189 mg/dLVery High LDL: greater than or equal to 190 mg/dL HDL Cholesterol 42 mg/dL [facility] Comment:Desirable HDL: great er than 40 mg/dL Note: This HDL assay may give artificially low results in patients with liver disease. 11/10/2022 8:38 AM EDT 11/10/2022 11:08 AM EDT us Jameson Avelar MD LAB BLOOD ORDERABLES Final Result [facility] [address] [place] [phone] [phone] documented in this encounter Visit Diagnoses Not on filedocumented in this encounter Care Teams Clinical Nursing Manager Relationship Specialty Start Date End Date Jameson Mccurdy MD [address] [place] [address] PCP - General Internal Medicine 02/12/19 documented as of this encounter
--- OUTSIDE RECORDS SUMMARY | 2024-08-25 09:25 | XMS_ITS | Encounter Summary ---
Author Organization [employer] Address [address] [facility] 7t [place] [address] Care Team Providers Care Power Hammer Operator Name Role Phone Jameson Mccurdy MD Primary Care Provide r Encounter Details Date Type Department Care Team (Late st Contact Info) Description 08/09/2022 Abstract [facility] [address] [place] [address] Jameson Mccurdy MD [address] [place], [place] [phone] Social History Tobacco Use Types Packs/Day Years [...] Description 09/02/2024 2:00 PM EDT Office Visit [facility] [address] [place], [place] [phone] Jameson Mccurdy MD [address] [place], [place] [phone] documented as of this encounter Procedures Procedure Name Priority Date/Time Associated Diagnosis Comments COLONOSCOPY Routine 03/16/2022 documented in this encounter Results * Colonoscopy (03/16/2022) Colonoscopy Normal Normal 03/16/2022 Narrative Valentina Butt - 03/16/2022 9:52 AM EST Recommended five year follow up due to polypectomy ( see scanned report )[facility] us Historical Provider [facility] Edited Result - Final documented in this encounter Visit Diagnoses Not on filedocumented in this encounter Care Teams Power Hammer Operator Relationship Specialty Start Date End Date Jameson Mccurdy MD [address] [place] [address] PCP - General Internal Medicine 02/12/19 documented as of this encounter
== END 2024-08-25 10:19 | disposition home or self-care (01) ==
LOC: HO.HCS 09:14
PROVIDERS: PCP Internal Medicine; Visit Provider Internal Medicine Cardiovascular Disease
DX: R07.89 Other chest pain (principal)
CPT/HCPCS: 93010; 99204; G2211

== ENCOUNTER → 2024-08-25 09:14 | Outpatient (BNVA) | payer MEDICARE, SELFPAY | PROVIDERS: PCP Internal Medicine; Visit Provider Internal Medicine Cardiovascular Disease | DX: R07.89 Other chest pain (principal) | CPT/HCPCS: 93005; 99202 ==

== ENCOUNTER 2024-09-18 08:41 | Outpatient (REF) | payer MEDICARE, SELFPAY ==
--- OUTSIDE RECORDS SUMMARY | 2024-09-18 09:02 | XMS_ITS | Encounter Summary ---
Author Organization [employer] Address [address] [facility] 7t [place] [address] Care Team Providers Care Gang Miner Name Role Phone Jameson Mccurdy MD Primary Care Provide r Encounter Details Date Type Department Care Team ([facility] st Contact Info) Description 03/22/2022 Orders Only [facility] [address] [place] [address] Jameson Mccurdy MD [address] [place] [address] Social History Tobacco Use Types Packs/Day Years [...] as of this encounter Plan of Treatment Not on file documented as of this encounter Procedures Procedure Name Priority Date/Time Associated Diagnosis Comments LIPID PANEL, STANDARD Routine 11/10/2022 8:38 AM EDT documented in this encounter Results * Lipid Panel, Standard (11/10/2022 8:38 AM EDT) Triglycerides 151 mg/dL [facility] Comment:Desirable Triglyceri de: less than 150 mg/dLBorderline High Triglyceride 150-199 mg/dLHigh Triglyceride: 200-499 mg/dLVery High Triglyceride: greater than or equal to 5OO mg/dL Cholesterol 178 mg/dL [facility] Comment:Desirable Cholestero l: less than 200 mg/dLBorderline High Cholesterol: 200-239 mg/dLHigh Cholesterol: greater than 239 mg/dL LDL Cholesterol Calculated 106 mg/dl [facility] Comment:Desirable LDL: less than 100 mg/dLNear Optimal/Above Optimal LDL: 110- 129 mg/dLBorderline High LDL: 130-159 mg/dLHigh LDL: 160-189 mg/dLVery High LDL: greater than or equal to 190 mg/dL HDL Cholesterol 42 mg/dL [facility] Comment:Desirable HDL: great er than 40 mg/dL Note: This HDL assay may give artificially low results in patients with liver disease. 11/10/2022 8:38 AM EDT 11/10/2022 11:08 AM EDT us Jameson Avelar MD LAB BLOOD ORDERABLES Final Result [facility] [address] [place] [phone] documented in this encounter Visit Diagnoses Not on filedocumented in this encounter Care Teams Gang Miner Relationship Specialty Start Date End Date Jameson Mccurdy MD [address] [place] [address] PCP - General Internal Medicine 02/12/19 documented as of this encounter
[2024-09-18 11:37] LABS: Alanine Aminotransferase 49 U/L (0-40); Albumin Level 4.4 g/dL (3.5-5.0); Alkaline Phosphatase 81 U/L (39-117); Anion Gap 10 (12-20); Aspartate Amino Transferase 29 U/L (5-37); Bilirubin Total 0.3 mg/dL (0.0-1.0); Blood Urea Nitrogen 9 mg/dL (9-16); Calcium 9.8 mg/dL (8.4-10.2); Carbon Dioxide 27 mmol/L (22-29); Chloride 106 mmol/L (96-108); Cholesterol 261 mg/dL (<200); Estimated Glomerular Filt Rate > 60; Glucose Random 91 mg/dL (60-115); HDL Cholesterol 29 mg/dL (>40); Sodium 139 mmol/L (135-145); Total Protein 7.4 g/dL (6.5-8.0); Triglycerides 740 mg/dL (<150)
[2024-09-18 11:54] LABS: Prostate Specific Antigen Scr 1.76 ng/mL (<0.05-4.0)
== END 2024-09-18 08:42 | disposition home or self-care (01) ==
LOC: HO.HHCL 08:41
PROVIDERS: Visit Provider Internal Medicine
DX: I10 Essential (primary) hypertension (principal); E78.2 Mixed hyperlipidemia; Z00.00 Encounter for general adult medical examination without abnormal findings
CPT/HCPCS: 36415; 80053; 80061; 84153

== ENCOUNTER 2024-11-04 11:45 | Outpatient (AMB) | payer MEDICARE, SELFPAY ==
[2024-11-04 13:13] VITALS: BP 114/62; PULSE 65; BMI 29.8
--- NOTE | 2024-11-04 13:13 | MHC.OFFVIS ---
Vital Signs 11/04/24 13:13 Height 5 ft 2 in Weight 163 lb 2.273 oz BMI 29.8 BP 114/62 Blood Pressure Location Lt brachial Position Sitting Pulse 65 Pulse Source Pulse Oximeter Intake Visit Reasons: 2 mth f/up diandra/ echo NS Boring Machine Set Up Operator Required: Yes Boring Machine Set Up Operator Language: Automotive Airconditioning Mechanic Name: voice chang [id number] Allergies No Known Allergies Allergy (Verified 11/04/24 13:15) Medication List - Last Reconciled 11/04/24 by Andres Johnson NP lisinopril 20 mg PO DAILY omeprazole 20 mg PO DAILY verapamil ER 240 mg PO DAILY HPI Comments Details: This is a 69-year-old male patient coming in for a follow-up visit. Patient with a history of hypertension, hyperlipidemia, and former smoker. A wood and wood products labourer was used throughout the visit. Patient was previously seen in the office for chest discomfort for which patient was planned for a Diandra stress test as patient had difficulty walking the treadmill with a stress test previously. However, patient states that he has not completed them anywhere.. Today, patient continues to report ongoing intermittent left-sided chest discomfort which can happen with exertion as well as at rest. Patient denies any associated symptoms of shortness of breath, palpitations, dizziness, orthopnea, PND, leg edema, presyncope, or syncope. Patient states that his PCP took him off his atorvastatin but the patient did not have a clear reason for this. [facility] Medical History Hyperlipidemia HTN (hypertension) Surgical History Hx of appendectomy Family History Father No problems noted. Mother No problems noted. Social History Patient Tobacco Use Status: Former Tobacco user Review of Systems ENT Reports dizziness Card Denies chest pain, Denies chest pain at rest, Denies chest pain with activity, Denies rapid heart rate, Denies pedal edema, Denies edema, Denies leg edema, Denies lightheadedness, Denies palpitations, Denies dyspnea, Denies dyspnea on exertion and Denies orthopnea Resp Denies cough, Denies dyspnea and Denies dyspnea on exertion GI Denies hematochezia and Denies change in stool character Musc Denies abnormal gait, Reports limited range of motion, Reports muscle cramps, Denies muscle weakness, Denies numbness, Denies radiating pain into limb, Denies stiffness and Denies tingling Neuro Denies abnormal gait, Reports dizziness, Denies numbness and Denies tingling Endo Denies palpitations Physical Exam Vital Signs: Last Vital Signs Pulse 65 11/04/24 13:13 BP 114/62 11/04/24 13:13 BMI result Body Mass Index 29.8 Const General: cooperative, healthy appearing, comfortable and no acute distress Orientation/consciousness: patient oriented x3 HEENT Head: Yes normal to inspection Neck Neck: Yes normal visual inspection, Yes trachea midline and Yes supple Chest Chest palpation & inspection: normal inspection of the chest Resp Effort & Inspection: normal respiratory effort Auscultation: clear to auscultation bilaterally, no crackles, no rales, no rhonchi and no wheezes Cardio Jugular venous distension: no JVD Palpation: normal PMI Rate: regular rate Rhythm: regular rhythm Heart sounds: S1 normal heart sound present, S2 normal heart sound present, no click, no gallops, no murmurs and no rubs Peripheral pulses: Peripheral pulses 2+ throughout GI Inspection: Yes normal to inspection Palpation (GI): Soft to palpation Auscultation: normal bowel sounds Skin General skin exam: no rashes or lesions noted Neuro General: patient oriented x3 Extrem General: Yes normal to inspection, No no pedal edema and No calf tenderness Psych Appearance: grossly normal Mental Status: mental status grossly normal Speech and movement: Normal speech and movement present Assessment & Plan Assessment & Plan (1) Atypical chest pain: Code(s): R07.89 - Other chest pain Category: Medical (2) HTN (hypertension): Code(s): I10 - Essential (primary) hypertension Category: Medical (3) Hyperlipidemia: Code(s): E78.5 - Hyperlipidemia, unspecified Category: Medical Plan Given his ongoing symptoms of chest pain, atypical in nature. However, given his risk factors of family history, hypertension, and uncontrolled cholesterol, we will continue to pursue the vasodilating myocardial perfusion in the next 2-3 weeks to evaluate for ischemic changes. We will also get an echo study to assess for any LV systolic and diastolic dysfunction as well as wall motion abnormalities. Blood pressure today is controlled. Continue current regimen. Advised monitoring blood pressure with a goal less than 130/80. Patient was previously on atorvastatin therapy for high lipids however, patient states that he has been taken off it by his PCP. Most recent lipid profile as uncontrolled, patient unsure if it is fasting or not as his previous levels were pretty well-controlled. We will repeat a fasting lipid profile. Ideally, LDL goal closer to 70. Advised heart healthy diet, med compliance, and management of vascular risk factors. Follow up after completion of the test. In the interim, patient will call the office with any concerns or change in symptoms. Advised to seek ER care in case of exertional chest pain not resolved with rest. This note was generated using voice recognition software. While every effort has been made to ensure accuracy and proper horses or mules teamster, there may be occasional errors that could affect the content or meaning of the described symptoms. Orders: Orders CA lexiscan stress w paris 3 Weeks R07.89 - Other chest pain NM cardiolite stress test 3 Weeks R07.89 - Other chest pain CA echo transthoracic complete 3 Weeks I10 - Essential (primary) hypertension, R07.89 - Other chest pain Coding Level of Care Code Est Pt Level 4 (80665) Complex EM visit Add On G2211 Diagnoses Atypical chest pain R07.89 HTN (hypertension) I10 Hyperlipidemia E78.5 Time Spent (min) 31 Comment Time spent in reviewing the chart, test results, assessment, counseling and documentation.
== END 2024-11-04 13:39 | disposition home or self-care (01) ==
LOC: HO.HCS 11:46
PROVIDERS: PCP Internal Medicine
DX: R07.89 Other chest pain (principal); I10 Essential (primary) hypertension; E78.5 Hyperlipidemia, unspecified
CPT/HCPCS: 99214; G2211

== ENCOUNTER → 2024-11-04 11:45 | Outpatient (BNVA) | payer MEDICARE, SELFPAY | PROVIDERS: PCP Internal Medicine | DX: I10 Essential (primary) hypertension (principal); E78.5 Hyperlipidemia, unspecified; R07.89 Other chest pain | CPT/HCPCS: 99212 ==

== ENCOUNTER → 2024-12-22 09:39 | Outpatient (REF) | payer MEDICARE, SELFPAY ==
--- NOTE | ~2024-12-22 | NM_ITS ---
Lexiscan Myocardial perfusion study Indication: Abnormal EKG, chest pain Technique: The patient was brought in for a Lexiscan perfusion study on 12/22/2024 and was injected 0.4 mg of Lexiscan intravenously. Within a minute of this injection 25 mCi of sestamibi was given intravenously. Images were obtained using the SPECT gamma camera interlaced with the gating device. Images were obtained in supine position. Resting perfusion study was performed on 12/24/2024. Patient was administered 25 mCi of sestamibi intravenously at rest. Images were then obtained in supine position. Total DLP 89 mGy-cm. Images were processed with the software and compared side to side in short axis, horizontal long axis and vertical long axis views. Findings: Raw aquisition reviewed. The stress perfusion study showed mildly diminished tracer uptake along the inferior wall in the basal to mid portions. There is improvement with CT attenuation correction suggestive of diaphragmatic attenuation artifact. The gated study shows normal LV systolic function with calculated LVEF of 62%. LV cavity is normal in size. The gated study shows normal wall thickening and contraction of segments. Resting study shows no significant perfusion abnormality. Gating at rest reveals normal wall motion with ejection fraction at 50%. The findings are consistent with no clear reversible or fixed perfusion defects. NM/DE cardiolite stress test Impression: 1. Myocardial perfusion imaging study shows probably normal myocardial perfusion. 2. Gated LVEF is 60% during stress; 50% during rest but visually appears higher. 3. Transient ischemic dilatation not present. EKG component of the test reported separately. Electronically signed by: Elbert Escudero MD 12/25/2024 03:50 PM EDT
--- NOTE | 2024-12-22 09:42 | CA_ITS ---
Acquisition Time: 2024-12-22 09:58:48 Total Exercise Time: 00:02:00 Test Indications: Abnormal ECG CP Medications: LISINOPRIL VERAPAMIL ATORVASTATIN OMEPRAZOLE Protocol: LEXISCAN Max HR: 112 BPM 73% of Pred: 152 BPM Max BP: 166/92 mmHG Max Work Load: 1.2 METS Pharmacological stress test with Lexiscan while pt marches in chair, with reports of SOB, without any arrythmias, with normotensive response to injection. Nondiagnostic EKG for ischemia. In recovery, pt feeling well and breathing returned to baseline. Nuclear images pending. Test reviewed with Dr. Escudero. Referred By: Andres Johnson Electronically Signed By: Andres Johnson
--- OUTSIDE RECORDS SUMMARY | 2024-12-22 11:41 | XMS_ITS | Encounter Summary ---
Author Organization [employer] Address [address] 7[address] [place] [address] Care Team Providers Care Flame Burner Name Role Phone Jameson Mccurdy MD Primary Care Provide r Encounter Details Date Type Department Care Team (Late st Contact Info) Description 08/09/2022 Abstract [facility] MEDICINE [address] [place] [address] Jameson Mccurdy MD [address] [place] [address] Social History Tobacco Use Types Packs/Day Years [...] * Colonoscopy (03/16/2022) Colonoscopy Normal Normal 03/16/2022 Dieter Tobinba - 03/16/2022 9:52 AM EST Recommended five year follow up due to polypectomy ( see scanned report )[facility] us Historical Provider HEALTH MAINTENANCE Edited Result - Final documented in this encounter Visit Diagnoses Not on filedocumented in this encounter Care Teams Flame Burner Relationship Specialty Start Date End Date Jameson Mccurdy MD [address] [place] [address] PCP - General Internal Medicine 02/12/19 documented as of this encounter
--- OUTSIDE RECORDS SUMMARY | 2024-12-22 11:41 | XMS_ITS | Encounter Summary ---
Author Organization [employer] Address [address] [facility] 7t [place] [address] Care Team Providers Care Frame Gate Mortiser Operator Name Role Phone Jameson Mccurdy MD Primary Care Provide r Reason for Visit * Reason Onset Date Comments Call back 08/07/2022 Encounter Details Date Type Department Care Team ([facility] st Contact Info) Description 08/07/2022 Telephone [facility] MEDICINE [address] [place] [address] Jameson Mccurdy MD [address] [place] [address] Call back Social History Tobacco Use Types [...] a call from the Clinic today (08/07/2022). Real Estate Salesperson does not see no task of this call Please contact pt at [phone] Brazilian Speaker documented in this encounter Plan of Treatment Not on file documented as of this encounter Visit Diagnoses Not on filedocumented in this encounter Care Teams Frame Gate Mortiser Operator Relationship Specialty Start Date End Date Jameson Mccurdy MD [address] [place] [address] PCP - General Internal Medicine 02/12/19 documented as of this encounter
--- OUTSIDE RECORDS SUMMARY | 2024-12-22 11:41 | XMS_ITS | Encounter Summary ---
Author Organization [employer] Address [address] [facility] [facility] [address] 7[address] [place] [address] Care Team Providers Care Hand Stonecutter Name Role Phone Jameson Mccurdy MD Primary Care Provide r Encounter Details Date Type Department Care Team (Late st Contact Info) Description 02/23/2022 Abstract [facility]ICINE [address] [place] [address] Jameson Mccurdy MD [address] [place] [address] Social History Tobacco Use Types Packs/Day Years [...] Diagnosis Comments LIPID PANEL, STANDARD Routine 10/21/2020 HM COLONOSCOPY Routine 09/12/2012 documented in this encounter [...] on filedocumented in this encounter Care Teams Hand Stonecutter Relationship Specialty Start Date End Date Jameson Mccurdy MD [address] [place] [address] PCP - General Internal Medicine 02/12/19 documented as of this encounter
--- OUTSIDE RECORDS SUMMARY | 2024-12-22 11:41 | XMS_ITS | Clinical Summary ---
Author Organization [employer] Address [address] [facility] 7[address] [place] [address] Care Team Providers Care Web Project Manager Name Role Phone Jameson Mccurdy MD Primary Care Provide r Allergies No known active allergies Medications hydrocortisone (Anusol-HC) 2.5 % rectal creamIndications:H emorrhoids, unspecified hemorrhoid type Insert into the rectum 2 times daily. 28 g 1 09/07/19 24 Active lisinopril 20 MG tabletIndications: Essential hypertension TAKE 1 TABLET BY MOUTH EVERY DAY 90 tablet 1 10/17/19 25 Active omeprazole (PriLOSEC) [address] capsuleIndications :Gastroesophageal reflux disease without esophagitis TAKE 1 CAPSULE BY MOUTH ONCE DAILY BEFORE A MEAL 90 capsule 11/05/19 25 Active atorvastatin (Lipitor) 20 MG tabletIndications: Mixed hyperlipidemia Take 1 tablet (20 mg) by mouth Once per day. 90 tablet 1 11/05/19 25 Active verapamil SR (Calan SR) 240 MG ER tabletIndications: Essential hypertension Take 1 tablet by mouth once daily with food 90 tablet 12/20/19 25 Active verapamil SR (Calan SR) 240 MG ER tabletIndications: Essential hypertension TAKE 1 TABLET BY MOUTH EVERY DAY WITH FOOD 90 tablet 09/20/19 25 025 Discontinued Active Problems Problem Noted Date Diagnosed Date Abnormal EKG 10/09/2023 Assessment & Plan (09/05/2024 9:34 AM EDT): 68 year old male with Pmhx [...] when he was running in the treadmill. Pt finally seen by cardiology dr. Bruce who recommended a vasodilator stress test and ECHO. Seen 08/25/2024 The 10-year ASCVD risk score (Sally HANNON, et al., 2019) is: 21.4% Values used to calculate the score: Age: 69 years Sex: Male Is Non- : No Diabetic: No Tobacco smoker: No Systolic Blood Pressure: 150 mmHg Is BP treated: Yes HDL Cholesterol: 40 mg/dL Total Cholesterol: 139 mg/dL Assessment & Plan (05/01/2024 2:03 PM EST): [...] it repeated. Previously Pt was referred to [facility] for a repeat appointment scheduled for 06/2019, unfortunately this was cancelled due to Covid, He was finally seen 08/31/2021 and had a colonoscopy March 16 2022 at [facility] that showed 3 polyps 5 year follow [...] it repeated. Previously Pt was referred to [facility] for a repeat appointment scheduled for 06/2019, unfortunately this was cancelled due to Covid, He was finally seen 08/31/2021 and is already scheduled for procedure for March 16 2022 [facility] care 03/10/2022 Assessment & Plan (09/05/2024 9:36 AM EDT): PSA Normal 1.22 10/12/2023, will repeat Colonoscopy: History of an extremely large sessile polyp of the transverse colon piecemeal resected. he had a colonoscopy 09/12/[address] Marinelli.Repeat Colonoscopy 03/2022 showed 3 polyps and hemorrhoids 5 yr follow up recommended to be done at [facility] in 2026. Assessment & Plan (01/08/2024 2:39 PM EDT): PSA Normal 1.22 10/12/2023 Colonoscopy: History of an extremely large sessile polyp of the transverse colon piecemeal resected. he had a colonoscopy 09/12/[address] Marinelli.Repeat Colonoscopy 03/2022 showed 3 polyps and hemorrhoids 5 yr follow up recommended to be done at [facility] in 2026. Assessment & Plan (10/09/2023 12:42 PM EDT): JERAD: PSA Normal 2020, will repeat Colonoscopy: History of an extremely large sessile polyp of the transverse colon piecemeal resected. he had a colonoscopy 09/12/[address] Marinelli.Repeat Colonoscopy 03/2022 showed 3 polyps and hemorrhoids 5 yr follow up recommended done at [facility] in 2026. Assessment & Plan (07/04/2022 2:18 PM EDT): JERAD: PSA Normal 2020 Colonoscopy: History of an extremely large sessile polyp of the transverse colon piecemeal resected. he had his last colonoscopy 09/12/[address] Marinelli. Repeat Colonoscopy 03/2022 showed 3 polyps and hemorrhoids 5 yr follow up recommended done at [facility] Assessment & Plan (03/10/2022 5:19 PM EST): [...] Impaired glucose tolerance 02/23/2022 Assessment & Plan (09/05/2024 9:36 AM EDT): FBS 10/12/2023: 97 Will repeat Assessment & Plan (05/01/2024 2:33 PM EST): FBS 10/12/2023: 97 Will repeat Assessment & Plan (01/08/2024 2:36 PM EDT): Repeat FBS 10/12/2023: 97 Assessment & Plan (10/09/2023 12:36 PM EDT): Repeat FBS 03/2023 104 Assessment & Plan (03/20/2023 10:25 AM EST): Will obtain a FBS Posterior vitreous detachment of right eye 08/19 Essential hypertension 06/10/2018 Assessment & Plan (09/05/2024 9:35 AM EDT): Patient is here for a f/u BP remains controlled He is on a regimen of: Verapamil 240 mg po daily and Lisinopril 20 mg. po daily. Given the fact that he had Hypercalcemia and initial work up had been negative for other etiologies I was concerned the Thiazide diuretic was contributing to it Most recent electrolytes, Bun and Creatinine Lab Results Component Value Date NA 143 10/12/2023 NA 142 03/27/2023 K 4.2 10/12/2023 K 4.3 03/27/2023 CL 108 10/12/2023 CL 108 03/27/2023 BUN 12 10/12/2023 BUN 16 03/27/2023 CREATININE 1.23 10/12/2023 CREATININE 1.23 03/27/2023 were wnl. Will repeat patient advised to adhere to a low sodium diet, encouraged about medication compliance, counseled about weight loss. Plan: continue current regimen Assessment & Plan (05/01/2024 2:03 PM EST): [...] disease 06/10/2018 Hyperlipidemia 06/10/2018 Assessment & Plan (09/05/2024 9:35 AM EDT): Patient with elevated lipids. Most recent lipid profile from: Lab Results Component Value Date TRIG 103 10/12/2023 TRIG 151 11/10/2022 CHOL 139 10/12/2023 CHOL 178 11/10/2022 LDLCHOLCAL 79 10/12/2023 LDLCHOLCAL 106 11/10/2022 HDL 40 (L) 10/12/2023 HDL 42 11/10/2022 Currently on Atorvastatin 20 mg po qhs . LDL at target. Will repeat Lipid profile advised to try to adhere to a low cholesterol diet, counseled and educated about diet and exercise, Patient encouraged to come up with a personal goal for weight loss. Assessment & Plan (01/08/2024 2:38 PM EDT): [...] less than 100 mg/dLNear Optimal/Above Optimal LDL: 110-129 mg/dLBorderline High LDL: 130-159 mg/dLHigh LDL: 160-189 [...] Encounters Date Type Department Care Team Description 12/19/2024 Refill [facility] [address] [facility] [place] [address] Bharti Pulliam MD Essential hypertension 11/20/2024 Telephone [facility] [address], [place] [address] Jameson Mccurdy MD Referral 11/18/2024 Telephone [facility] [address] [place] [address] Jameson Mccurdy MD Referral 11/04/2024 Orders Only [facility] [address], [place] [address] Jameson Mccurdy MD Mixed hyperlipidemia 11/01/2024 Refill [facility] [address], [place] [address] Jameson Mccurdy MD Gastroesophageal reflux disease without esophagitis 10/16/2024 Refill [facility] [address] [place] [address] Jameson Mccurdy MD Essential hypertension 09/26/2024 Results Follow-Up [facility] [address], [place] [address] Jameson Mccurdy MD Comprehensive Metabolic Panel, Lipid Panel, Standard, PSA, Screen from Last 3 Months Immunizations Immunization Administration [...] What is your housing situation today? I am not s ure 09/05/[address] you li ve. Do you have problems with any of the following? I am not sure 09/05/2024 Food Insecurity Answer Date Recorded Within the past 12 months, y ou worried that your food would run out before you got money to buy more: Sometimes True 2024 Within the past 12 months,th e food you bought just didn't last and you didn't have enough money to get more: Sometimes True 09/05/2024 Transportation Answer Date Recorded In the past 12 months, has l ack of transportation kept you from medical appts, meetings, work or from getting things needed for daily living? No 09/05/2024 Utilities Answer Date Recorded In the past 12 months, has t he electric, gas, oil or water company threatened to shut off services in your home? I am not sure 09/05/2024 Depression Answer Date Recorded Patient Health Questionnaire-2 Score 0 05/01/2024 Internet Access Answer Date Recorded Internet Access Q1 Yes 09/05/2024 Internet Access Q2 Not on file 09/05/2024 Sex and Gender Information Value Date Recorded Sex Assigned at Male 02/06/2022 10:35 AM EDT Legal Sex Male 10:35 AM EDT Gender Identity Male 02/06/2022 10:35 AM EDT Sexual Orientation Straight 02/06/2022 10 :35 AM EDT Last Filed Vital Signs Vital Sign Reading Time Taken Comments Blood Pressure 130/80 09/05/2024 9:42 AM EDT Pulse 80 09/05/2024 9:01 AM EDT Temperature 36.8 C (98.2 F) 09/05/2024 9:01 AM EDT Respiratory Rate 20 09/05/2024 9:01 AM EDT Oxygen Saturation 99% 09/05/2024 9:01 AM EDT Inhaled Oxygen Concentration - - Weight 75.8 kg (167 lb) 09/05/2024 9:01 AM EDT Height 157.5 cm (5' 2 ) 09/05/2024 9:01 AM EDT Body Mass Index 30.54 09/05/2024 9:01 AM EDT Plan of Treatment Health Maintenance Due Date Last Done Comments CT Colonography 1956 Diabetes: Hemoglobin A1C 1955 FIT DNA/Cologuard 1955 FIT 1955 FOBT 1955 Sigmoidoscopy 1955 Zoster Vaccines (1 of 2) 2006 COVID-19 Vaccine ( season) 2024 10/25/2020, 09/27/2020 Influenza Vaccine (#1) 2024 , 01/09/2022, 01/17/2021, Additional history exists Alcohol/Substance Use Screening 05/01/2025 05/01/2024 Depression Screening 05/01/2025 05/01/2024, 05/01/19 25 SDOH Screening 09/05/2025 09/05/2024 Tobacco Screening 09/05/2025 09/05/2024 Colonoscopy 03/16/2027 03/16/2022, 09/12/2012 Colorectal Cancer Screening 03/16/2027 Lipid Panel 09/18/2029 09/18/2024, 07/0 08/2023, 11/10/2022, Additional history exists DTaP/Tdap/Td Vaccines (3 - [...] Associated Diagnosis Comments LIPID PANEL, STANDARD Routine 09/18/2024 8:43 AM EDT Mixed hyperlipidemia HEPATITIS C AB W/REFL TO HCV RNA, QN, PCR Routine 03/27/2022 9:26 AM EST Preventative health care [facility] COLONOSCOPY Routine 03/16/2022 from Last 3 Months or Most Recently Relevant to Health Maintenance Results * (ABNORMAL) Lipid Panel, Standard (09/18/2024 8:43 AM EDT) Triglycerides 740(H) <150 mg/dL [facility] Comment:Slight Lipemia.Samm able Triglyceride: less than 150 mg/dLBorderline High Triglyceride 150-199 mg/dLHigh Triglyceride: 200-499 mg/dLVery High Triglyceride: greater than or equal to 5OO mg/dL Cholesterol 261(H) <200 mg/dL [facility] Comment:Desirable Cholestero l: less than 200 mg/dLBorderline High Cholesterol: 200-239 mg/dLHigh Cholesterol: greater than 239 mg/dL LDL Cholesterol Calculated TNP <100 mg/dL [facility] Comment:Unable to calculate the LDL. The formula of Friedwald,Ahumada, and Louie is only valid if the triglycerides areless than 400 mg/dl. HDL Cholesterol 29(L) >40 mg/dL [facility] Comment:Desirable HDL: great er than 40 mg/dL Note: This HDL assay may give artificially low results in patients with liver disease. Blood Venous blood specimen / Unknown 09/18/2024 8:43 AM EDT 09/18/2024 11:10 AM EDT Jameson Avelar MD LAB BLOOD ORDERABLES Final Result [facility] [address] [place] [phone] * Hepatitis C Antibody with Reflex to HCV, RNA, Quantitative, Real-Time PCR (03/27/2022 9:26 AM EST) Hepatitis C Antibody NON-REACT KATELYNN NON-REACT KATELYNN [facility] [place] [facility] Index 0.05 <1.00 [facility] [place] [facility] Comment: HCV antibody was non-reactive. There is no laboratory evidence of HCV infection. In most cases, no further action is required. However, if recent HCV exposure is suspected, a test for HCV RNA (test code 57652) is suggested. For additional information please refer to [email or web address]/AII66e8 (This link is being provided for informational/ educational purposes only.) Blood Venous blood specimen / Unknown 03/27/2022 9:26 AM EST 03/27/2022 9:27 AM EST Narrative [facility] - 03/28/2022 10:18 AM EST FASTING:YES FASTING: YES Result [facility] Jameson Avelar MD LAB BLOOD ORDERABLES Final Result Performing Organization Address City/[facility]/ZIP Co de Phone Number [facility] [address] [facility], [place] [address] [facility] [place] [facility] [address] [facility], ([address]) [place] [address] * Hm Colonoscopy (03/16/2022) Colonoscopy Normal Normal 03/16/2022 Valentina Tobin - 03/16/2022 9:52 AM EST Recommended five year follow up due to polypectomy ( see scanned report )[facility] Historical Provider HEALTH MAINTENANCE Edited Result - Final from Last 3 Months or Most Recently Relevant to Health Maintenance Insurance [employer] MEDICARE REPLACEMENT Care Teams Web Project Manager Relationship Specialty Start Date End Date Jameson Mccurdy MD [address] [place] [id number] PCP - General Internal Medicine 02/12/19
--- OUTSIDE RECORDS SUMMARY | 2024-12-22 11:41 | XMS_ITS | Encounter Summary ---
Author Organization [facility] Address [address] [facility] 7t [place] [address] Care Team Providers Care Bessemer Bottom Maker Name Role Phone Jameson Mccurdy MD Primary Care Provide r Encounter Details Date Type Department Care Team ([facility] st Contact Info) Description 03/22/2022 Orders Only [facility] [address] [place] [address] Jameson Mccurdy MD [address] [place] [address] Social History Tobacco Use Types Packs/Day Years [...] (11/10/2022 8:38 AM EDT) Triglycerides 151 mg/dL [facility] Comment:Desirable Triglyceri de: less than 150 mg/dLBorderline High Triglyceride 150-199 mg/dLHigh Triglyceride: 200-499 mg/dLVery High Triglyceride: greater than or equal to 5OO mg/dL Cholesterol 178 mg/dL [facility] Comment:Desirable Cholestero l: less than 200 mg/dLBorderline High Cholesterol: 200-239 mg/dLHigh Cholesterol: greater than 239 mg/dL LDL Cholesterol Calculated 106 mg/dl [facility] Comment:Desirable LDL: less than 100 mg/dLNear Optimal/Above Optimal LDL: 110- 129 mg/dLBorderline High LDL: 130-159 mg/dLHigh LDL: 160-189 mg/dLVery High LDL: greater than or equal to 190 mg/dL HDL Cholesterol 42 mg/dL [facility] Comment:Desirable HDL: great er than 40 mg/dL Note: This HDL assay may give artificially low results in patients with liver disease. 11/10/2022 8:38 AM EDT 11/10/2022 11:08 AM EDT us Jameson Avelar MD LAB BLOOD ORDERABLES Final Result [facility] [address] [place] [phone] documented in this encounter Visit Diagnoses Not on filedocumented in this encounter Care Teams Bessemer Bottom Maker Relationship Specialty Start Date End Date Jameson Mccurdy MD [address] [place] [id number] PCP - General Internal Medicine 02/12/19 documented as of this encounter
--- OUTSIDE RECORDS SUMMARY | 2024-12-22 11:41 | XMS_ITS | Encounter Summary ---
Author Organization [employer] Address [address] [facility] [address] [place] [address] Care Team Providers Care Azure Developer Name Role Phone Jameson Mccurdy MD Primary Care Provide r Reason for Visit * Reason Comments Med Refill Encounter Details Date Type Department Care Team ([facility] st Contact Info) Description 12/19/2024 Refill [facility] [address] [place] [address] Bharti Pulliam MD [address] [place] [address] Essential hypertension Social History Tobacco Use Types Packs/Day Years Used Date Smoking Tobacco: Never Passive Smoke Exposure: Never Smokeless Tobacco: Never Alcohol Use Standard Drinks/Week [...] documented as of this encounter Visit Diagnoses Diagnosis Essential hypertension Unspecified essential hypertension documented in this encounter Additional Health Concerns Assessment Noted Time PHQ-9 Depression Total Score: 0 05/01/19 25 2:46 PM EST documented as of this encounter Care Teams Azure Developer Relationship Specialty Start Date End Date Jameson Mccurdy MD [address] [place] [address] PCP - General Internal Medicine 02/12/19 documented as of this encounter
== END ==
LOC: HO.CARD 09:39
PROVIDERS: PCP Internal Medicine
DX: R07.89 Other chest pain (principal)
CPT/HCPCS: 78452; 93017; A9500; J0280; J2785

== ENCOUNTER → 2024-12-22 09:42 | Outpatient (BNV) | payer MEDICARE, SELFPAY | PROVIDERS: PCP Internal Medicine | DX: R06.02 Shortness of breath (principal) | CPT/HCPCS: 78452; 93016; 93018 ==